=== PATIENT | female | born 1985 | race American Indian/Alaskan Native ===

== ENCOUNTER 2020-12-02 05:36 | Emergency (ER) | payer SELFPAY ==
[2020-12-02 06:01] VITALS: BP 148/90
[2020-12-02 06:24] LABS: Basophils % (Auto) 0.9 % (0.0-1.8); Eosinophils % (Auto) 0.4 % (0.0-4.3); Hematocrit 40.5 % (30.3-42.9); Hemoglobin 13.9 gm/dl (10.1-14.3); Lymphocytes # (Auto) 0.9 K/mm3 (1.2-5.4); Lymphocytes % (Auto) 25.2 % (13.4-35.0); Mean Corpuscular HGB Conc 34 % (30-34); Mean Corpuscular Volume 92 fl (79-97); Monocytes # (Auto) 0.3 K/mm3 (0.0-0.8); Monocytes % (Auto) 8.6 % (0.0-7.3); Platelet Count 270 K/mm3 (140-440); Red Cell Distribution Width 13.9 % (13.2-15.2)
[2020-12-02 06:43] LABS: Blood Urea Nitrogen 5 mg/dL (7-17); Hemolysis Index 2
[2020-12-02 06:55] LABS: BUN/Creatinine Ratio 8
[2020-12-02] MEDS ORDERED: ONDANSETRON 4 MG ODT TAB PO ONE (07:08)
[2020-12-02] MEDS ORDERED: FAMOTIDINE 20 MG TAB PO ONE (07:09)
[2020-12-02] MEDS ORDERED: DICYCLOMINE 10 MG CAP PO ONE (07:09)
[2020-12-02 07:24] LABS: Alanine Aminotransferase 16 units/L (7-56); Albumin 4.6 g/dL (3.9-5)
[2020-12-02 07:30] LABS: Bilirubin,Direct < 0.2 mg/dL (0-0.2)
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
== END 2020-12-02 08:51 | disposition home or self-care (01) ==
LOC: ED 05:36
DX: R10.13 Epigastric pain (principal); R11.2 Nausea with vomiting, unspecified; Z88.0 Allergy status to penicillin; Z79.899 Other long term (current) drug therapy
CPT/HCPCS: 36415; 80048; 80076; 83690; 85025; 99283; Q0162

== ENCOUNTER 2021-04-18 00:17 | Emergency (ER) | payer SELFPAY ==
[2021-04-18] MEDS ORDERED: diazePAM 5 MG TAB PO ONE (00:24)
[2021-04-18] MEDS ORDERED: ACETAMINOPHEN 500 MG TAB PO ONE (00:24)
[2021-04-18 00:28] VITALS: BP 135/100
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
--- NOTE | 2021-04-18 01:19 | XRay Report ---
XR chest routine 2V INDICATION / CLINICAL INFORMATION: chest wall pain: r/o rib fracture. COMPARISON: None available. FINDINGS: SUPPORT DEVICES: None. HEART /PULMONARY VASCULATURE: No significant abnormality. LUNGS / PLEURA: No significant pulmonary or pleural abnormality. No pneumothorax. ADDITIONAL FINDINGS: No acute osseous findings. No acute or healing displaced rib fracture is identif ied. IMPRESSION: 1. No acute findings. Signer Name: Jony Rodriguez MD Signed: 04/18/2021 1:15 AM Workstation Name: [id number]
== END 2021-04-18 01:32 | disposition home or self-care (01) ==
LOC: ED 00:17
DX: S46.912A Strain of unspecified muscle, fascia and tendon at shoulder and upper arm level, left arm, initial encounter (principal); S20.219A Contusion of unspecified front wall of thorax, initial encounter; I10 Essential (primary) hypertension; J45.909 Unspecified asthma, uncomplicated; V49.49XA Driver injured in collision with other motor vehicles in traffic accident, initial encounter; X58.XXXA Exposure to other specified factors, initial encounter; Y93.9 Activity, unspecified; Y92.89 Other specified places as the place of occurrence of the external cause; Y99.8 Other external cause status
CPT/HCPCS: 71046; 99283

== ENCOUNTER 2021-08-31 09:33 | Emergency (ER) | payer OTHER ==
[2021-08-31] MEDS ORDERED: IBUPROFEN 800 MG TAB PO ONE (09:49)
[2021-08-31] MEDS ORDERED: HYDROcodone/ACETAMINOPHEN 5-325 MG TAB PO ONE (09:49)
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
[2021-08-31 09:59] VITALS: BP 156/122
== END 2021-08-31 10:15 | disposition home or self-care (01) ==
LOC: ED 09:33
DX: S00.83XA Contusion of other part of head, initial encounter (principal); S09.90XA Unspecified injury of head, initial encounter; Z88.0 Allergy status to penicillin; J45.909 Unspecified asthma, uncomplicated; Y08.89XA Assault by other specified means, initial encounter; Y93.89 Activity, other specified; Y92.89 Other specified places as the place of occurrence of the external cause; Y99.8 Other external cause status
CPT/HCPCS: 99283